=== PATIENT | female | born 1980 | race Caucasian/White ===

== ENCOUNTER 2018-02-28 05:51 | Inpatient (IN) ==
[2018-02-28] MEDS ORDERED: BUTORPHANOL 2 MG/ML VIAL IV PRN (05:57)
[2018-02-28] MEDS ORDERED: ONDANSETRON 4 MG/2 ML VIAL IV PRN (05:57)
[2018-02-28] MEDS ORDERED: OXYTOCIN/LR 20 UNIT/1,000 ML BAG IV SCH (06:00)
[2018-02-28] MEDS: LACTATED RINGERS 1,000 ML IV SCH (06:25)
[2018-02-28 06:27] LABS: Hematocrit 36.4 VOL% (35.7-47.0); Mean Corpuscular Hemoglobin 30 PG (27-34); Mean Corpuscular Volume 91.2 FL (87-102); Mean Platelet Volume 11.3 FL (9.6-12.0); Platelet Count 170 T/CUMM (130-400); Red Blood Count 3.99 MC/CUMM (3.8-5.5); Red Cell Distribution Width 14.4 % (9.3-17.3); White Blood Count 7.1 T/CUMM (4-12)
[2018-02-28 06:28] LABS: Basophils % 0.4 % (0.0-0.8); Eosinophils # 0.1 10*3/uL (0.0-0.87); Eosinophils % 0.8 % (0.00-10.9); Immature Granulocytes % 1.3 %; Immature Granulocytes Absolute 0.09 #; Lymphocytes # 1.7 10*3/uL (1.4-4.0); Lymphocytes % 23.2 % (21.3-54.2); Monocytes # 0.6 10*3/uL (0.11-0.8); Monocytes % 8.6 % (1.7-12.7); Neutrophils # 4.7 10*3/uL (1.4-7.4); Neutrophils % 65.7 % (38.7-73.9)
[2018-02-28] MEDS ORDERED: NALOXONE 0.4 MG/ML VIAL IV PRN (07:26)
[2018-02-28] MEDS ORDERED: LACTATED RINGERS 1,000 ML IV ONE (07:26)
[2018-02-28] MEDS ORDERED: diphenhydrAMINE 50 MG/1 ML VIAL IV PRN ×2 (07:26)
[2018-02-28] MEDS ORDERED: ePHEDrine 50 MG/ML AMP IV PRN (07:26)
[2018-02-28] MEDS ORDERED: FAMOTIDINE 20 MG/2 ML VIAL IV ONE (07:26)
[2018-02-28] MEDS ORDERED: CITRIC ACID/SODIUM CITRATE 30 ML UDCUP PO ONE (07:26)
[2018-02-28] MEDS ORDERED: fentaNYL 2 MCG/ROPIV 0.2% EPID 100 ML EPIDURAL SCH (07:30)
[2018-02-28] MEDS ORDERED: miSOPROStol 200 MCG TABLET ONE (11:17)
[2018-02-28] MEDS ORDERED: LIDOCAINE 1% 50 ML VIAL ONE (11:17)
[2018-02-28 11:27] LABS: Apearance,Urine CLEAR (Clear); Bilirubin,Urine Negative (Negative); Blood, Urine Negative (Negative); Glucose,Urine (UA) Negative (Negative); Ketones,Urine 5 mg/dL (Negative); Mucus,Urine Occasional /LPF (Occasional); Nitrite,Urine Negative (Negative); Protein,Urine Negative; RBC,Urine <1 /HPF (0-4); Squamous Epithelial Cell,Urine Occasional /HPF (0-10); Urine Color Straw (Yellow); Urine Specific Gravity 1.008 (1.001-1.035); Urine Urobilinogen < 2.0 EU/DL (0.2-1.0)
[2018-02-28] MEDS ORDERED: miSOPROStol 200 MCG TABLET RECTAL ONE (12:10)
[2018-02-28] MEDS ORDERED: METHYLERGONOVINE 0.2 MG/1 ML AMP ONE (12:14)
[2018-02-28] MEDS ORDERED: METHYLERGONOVINE 0.2 MG/1 ML AMP IM ONE (12:17)
[2018-02-28] MEDS ORDERED: CARBOPROST TROMETHAMINE 250 MCG/ML AMP IM ONE (12:17)
[2018-02-28] MEDS: ACETAMINOPHEN/CODEINE 300-30 MG TABLET PO PRN ×2 (16:10→21:03)
[2018-02-28] MEDS ORDERED: BENZOCAINE 20%/MENTHOL 0.5% SPRAY 56 GM CAN TOP PRN (19:02)
[2018-02-28] MEDS ORDERED: OXYTOCIN/LR 20 UNIT/1,000 ML BAG IV ONE (19:02)
[2018-02-28] MEDS ORDERED: LANOLIN 50% CREAM 0.3 OZ TUBE TOP PRN (19:02)
[2018-02-28] MEDS ORDERED: DIPH/TET/ACEL PERT BOOSTER VACCINE 0.5 ML VIAL IM ONE (19:02)
[2018-02-28] MEDS ORDERED: ACETAMINOPHEN 325 MG TABLET PO PRN (19:02)
[2018-02-28] MEDS ORDERED: BISACODYL 10 MG SUPP RECTAL PRN (19:02)
[2018-02-28] MEDS ORDERED: HYDROCORTISONE 2.5% RECTAL CREAM 30 GM TUBE TOP PRN (19:02)
[2018-02-28] MEDS ORDERED: RHO(D) IMMUNE GLOBULIN 300 MCG SYRINGE IM ONE (19:02)
[2018-02-28] MEDS ORDERED: WITCH HAZEL PADS 100/JAR TOP PRN (19:02)
[2018-02-28] MEDS ORDERED: MEASLES/MUMPS/RUBELLA VACCINE 0.5 ML VIAL SUBCUT ONE (19:02)
[2018-02-28] MEDS: IBUPROFEN 800 MG TABLET PO PRN (19:50)
[2018-02-28] MEDS: DOCUSATE SODIUM 100 MG CAPSULE PO SCH (21:50)
[2018-03-01 04:37] LABS: Basophils % 0.3 % (0.0-0.8); Eosinophils % 0.3 % (0.00-10.9); Hematocrit 25.2 VOL% (35.7-47.0); Hemoglobin 8.3 GM/DL (12.0-16.0); Immature Granulocytes % 0.7 %; Immature Granulocytes Absolute 0.08 #; Lymphocytes # 1.9 10*3/uL (1.4-4.0); Lymphocytes % 16.2 % (21.3-54.2); Mean Corpuscular HGB Conc 32.9 GM/DL (32-36); Mean Corpuscular Hemoglobin 30 PG (27-34); Mean Platelet Volume 10.9 FL (9.6-12.0); Monocytes % 8.8 % (1.7-12.7); Neutrophils # 8.6 10*3/uL (1.4-7.4); Neutrophils % 73.7 % (38.7-73.9); Platelet Count 116 T/CUMM (130-400); Red Blood Count 2.74 MC/CUMM (3.8-5.5); Red Cell Distribution Width 14.5 % (9.3-17.3); White Blood Count 11.7 T/CUMM (4-12)
[2018-03-01] MEDS: LACTATED RINGERS 1,000 ML IV SCH (06:52)
[2018-03-01] MEDS: ACETAMINOPHEN/CODEINE 300-30 MG TABLET PO PRN (09:16)
[2018-03-01] MEDS: IBUPROFEN 800 MG TABLET PO PRN (15:10)
[2018-03-01] MEDS: DOCUSATE SODIUM 100 MG CAPSULE PO SCH ×2 (18:38→21:26)
[2018-03-01] MEDS: FERROUS SULFATE 325 MG TABLET PO SCH (21:26)
[2018-03-02] MEDS: IBUPROFEN 800 MG TABLET PO PRN (03:36)
[2018-03-02] MEDS: ACETAMINOPHEN/CODEINE 300-30 MG TABLET PO PRN (03:37)
[2018-03-02 07:59] VITALS: BP 138/87
[2018-03-02] MEDS: FERROUS SULFATE 325 MG TABLET PO SCH (09:00)
[2018-03-02] MEDS ORDERED: MULTIVITAMIN (PRENATAL) TABLET PO SCH (09:00)
[2018-03-02] MEDS: DOCUSATE SODIUM 100 MG CAPSULE PO SCH (09:00)
== END 2018-03-02 12:15 | disposition home or self-care (01) | DRG 768 ==
LOC: N.LDOUT 05:51 → N.LD 05:53 → N.OB 03-01 11:23
PROVIDERS: ADMIT Obstetrics & Gynecology; ATTEND Obstetrics & Gynecology